=== PATIENT | female | born 1960 | race American Indian/Alaskan Native ===

== ENCOUNTER 2016-11-06 23:01 | Emergency (ER) | payer MEDICARE, MEDICAID ==
[2016-11-06 23:01] VITALS: BMI 43.2
[2016-11-06 23:28] VITALS: RESP 18; O2SAT 96
--- NOTE | 2016-11-06 23:57 | C.PDOC ---
History Of Present Illness 55 year old male c/o dizziness and mild SOB for a week. Pt notes cough, congestion, and wheezing that occurred today that is consistent with asthma. Pt notes an hour duoneb treatment prior to arrival. Pt denies nausea, vomiting, diarrhea, fever, chills, and is speaking in full sentences. Time Seen by Provider: 11/06/16 23:34 Chief Complaint (Nursing): Dizziness/Lightheaded History Per: Patient History/Exam Limitations: no limitations Onset/Duration Of Symptoms: Days Current Symptoms Are (Timing): Still Present Severity: Mild Past Medical History Reviewed: Historical Data, Nursing Documentation, Vital Signs Vital Signs: Last Vital Signs Temp 98.4 F 11/07/16 00:07 Pulse 72 11/07/16 00:07 Resp 18 11/07/16 00:07 BP 145/76 11/07/16 00:07 Pulse Ox 96 11/07/16 00:07 - Medical History PMH: Asthma - [facility] Procedures APPLICATION OF SPLINT (06/01/14) Family History: States: Unknown Family Hx - Social History Hx Tobacco Use: No Hx Alcohol Use: No Hx Substance Use: No - Immunization History Hx Tetanus Toxoid Vaccination: No Hx Influenza Vaccination: No Hx Pneumococcal Vaccination: No Review Of Systems Except As Marked, All Systems Reviewed And Found Negative. Constitutional: Negative for: Fever, Chills ENT: Positive for: Nose Congestion Respiratory: Positive for: Cough, Shortness of Breath, Wheezing Gastrointestinal: Negative for: Nausea, Vomiting, Diarrhea Neurological: Positive for: Dizziness Physical Exam - Physical Exam Appears: Non-toxic, No Acute Distress, Other (Morbidly obese) Skin: Warm, Dry Head: Atraumatic, Normacephalic Respiratory: Normal Breath Sounds, No Rales, No Rhonchi, No Wheezing Neurological/Psych: Oriented x3, Normal Speech, Normal Cognition ED Course And Treatment O2 Sat by Pulse Oximetry: 96 (Room air) Pulse Ox Interpretation: Normal Medical Decision Making Medical Decision Making: impression: 55 y/o female c/o dizziness and wheezing Plans: -reassess and disposition Mild asthma and dizziness issues earlier today, all resolved. Oxygen saturation has improved. Patient is alert and oriented x 3. Patient was advised to follow up with physician in 1-2 days. Pt defers w/u now ok to d/c home. Disposition Doctor Will See Patient In The: Office Counseled Patient/Family Regarding: Studies Performed, Diagnosis - Disposition Referrals: Andrea Erickson [Primary Care Provider] - Disposition: HOME/ ROUTINE Disposition Time: 23:56 Condition: GOOD Additional Instructions: follow-up with Dr. Erickson for any new symptoms or return to our ED as needed Instructions: Asthma (ED) - Clinical Impression Clinical Impression: Asthma - Scribe Statement The provider has reviewed the documentation as recorded by the Scribe Jana smith All medical record entries made by the Milagrosibhunter were at my direction and personally dictated by me. I have reviewed the chart and agree that the record accurately reflects my personal performance of the history, physical exam, medical decision making, and the department course for this patient. I have also personally directed, reviewed, and agree with the discharge instructions and disposition.
[2016-11-07 00:08] VITALS: BP 145/76; PULSE 72; TEMP 98.4
== END 2016-11-07 00:08 | disposition home or self-care (01) ==
LOC: SUPCPDRO 23:01 → C.ER 23:01
DX: J45.909 Unspecified asthma, uncomplicated (principal)